=== PATIENT | female | born 1950 | race Caucasian/White ===

== ENCOUNTER 2017-08-09 08:03 | Inpatient (IN) | payer OTHER ==
[~2017-08-09] VITALS: Ht 170.2 cm; Wt 67.1 kg
[~2017-08-09 08:03] MED LIST: ASPIRIN81 M1; CALICUM 500+D1 EACH; CELEXA20 MG PO; CENTRUM ULTRA1 EAC1 PO; ESTRACE42.5 GM VG; FIBER CHOICE CHE2 GM; FIBER GUMMIES2.5 GM PO; FISH OIL 1,2001 EAC3 PO; FLONASE16 G1 BOTH NARES; MULTIPLE VITAM1 EAC4; OMEPRAZOLE20 MG; PRILOSEC OTC20 MG PO; TYLENOL ARTHRI650 M2 PO
[2017-08-09 09:35] LABS: EOSINOPHIL (%) 0.1 % (0-5); HEMATOCRIT 41.8 % (36.0-46.0); IMMATURE GRANULOCYTE (%) 0.5 % (0.0-0.7); INSTRUMENT ABS NEUTROPHIL CT 6.2 K/uL; LYMPHOCYTE COUNT 1.5 K/uL (1.0-2.8); MCH 30.9 PG (29.0-34.0); MCHC 33.7 G/DL (30.0-36.0); MCV 91.5 FL (83-99); MEAN PLAT.VOLUME 10.3 uM^3 (9.5-12.4); MONOCYTE (%) 6.5 % (3-12); MONOCYTE COUNT 0.5 K/uL (0-0.8); NEUTROPHIL (%) 75.1 % (45-76); NEUTROPHIL COUNT 6.2 K/uL (1.8-6.4); PLATELET COUNT 287 K/uL (156-360); RBC DIS.WIDTH-CV 13.2 % (11.8-14.6); RBC DIS.WIDTH-SD 44.6 % (39-53); RED BLOOD COUNT 4.57 M/uL (3.80-5.20); WHITE BLOOD COUNT 8.3 K/uL (4.1-10.2)
[2017-08-09 09:46] LABS: AMPHETAMINE NEGATIVE (500 ng/mL); BARBITURATES NEGATIVE (200 ng/mL); BENZODIAZEPINES NEGATIVE (150 ng/mL); COCAINE NEGATIVE (150 ng/mL); INTERNAL CONTROLS VALID? YES; METHADONE NEGATIVE (200 ng/mL); METHAMPHETAMINE NEGATIVE (500 ng/mL); OPIATES (MORPHINE) NEGATIVE (100 ng/mL); OXYCODONE NEGATIVE (100 ng/mL); PHENCYCLIDINE NEGATIVE (25 ng/mL); PROPOXYPHENE NEGATIVE (300 ng/mL); THC CANNABINOIDS NEGATIVE (50 ng/mL); TRICYCLIC ANTIDEPRESSANTS NEGATIVE (300 ng/mL)
[2017-08-09 09:47] LABS: CHLORIDE 108 mEq/L (99-109); POTASSIUM 4.3 mEq/L (3.7-5.4); SODIUM 144 mEq/L (136-147)
[2017-08-09 09:49] LABS: GLUCOSE 93 mg/dL (70-99)
[2017-08-09 09:50] LABS: ANION GAP 9 MEQ/L (2-14)
[2017-08-09 09:52] LABS: SERUM ETHYL ALCOHOL < 10 mg/dL
[2017-08-09 09:53] LABS: GFR ESTIMATE (CALCULATED) > 59 mL/min/
[2017-08-09 09:55] LABS: UREA NITROGEN (BUN) 15 mg/dL (9-23)
[2017-08-09 09:56] LABS: SALICYLATE < 5.0 MG/DL (15-30)
[2017-08-09] MEDS ORDERED: OMEPRAZOLE20 MG PO (13:17)
[2017-08-09 14:30] LABS: ADD MIUA? YES; BILIRUBIN NEGATIVE; BLOOD NEGATIVE; COLOR COLORLESS ((YELLOW)); GLUCOSE (STRIP) NEGATIVE; KETONES NEGATIVE; LEUKOCYTES TRACE; NITRITE NEGATIVE; PROTEIN (STRIP) NEGATIVE; SPECIFIC GRAVITY 1.004 (1.000-1.030); UROBILINOGEN 0.2 MG/DL (0.2-1.0)
[2017-08-09 14:50] LABS: BACTERIA NONE SEEN /HPF; EPITHELIAL CELLS RARE /HPF; MUCUS NONE SEEN /LPF; RED BLOOD CELLS NONE SEEN /HPF (0-5); UCUL ADDED? NO; WHITE BLOOD CELLS 0-5 /HPF (0-5)
[2017-08-09 15:46] VITALS: BP 142/80
[2017-08-10 07:45] VITALS: BP 143/81
[2017-08-10 15:23] VITALS: BP 151/96
[2017-08-11 07:52] VITALS: BP 158/96
[2017-08-11 16:13] VITALS: BP 146/92
[2017-08-12 07:38] VITALS: BP 145/91
[2017-08-12 15:38] VITALS: BP 119/77
[2017-08-13 07:44] VITALS: BP 146/79
[2017-08-13 15:12] VITALS: BP 135/86
[2017-08-14 07:36] VITALS: BP 133/76
[2017-08-14] MEDS ORDERED: LEXAPRO10 MG PO (09:27)
[2017-08-14] MEDS ORDERED: ARIPIPRAZOLE2 MG PO (09:29)
[2017-08-14] MEDS ORDERED: HYDROXYZINE PAM50 MG PO (09:29)
[2017-08-14] MEDS ORDERED: HYDROXYZINE PAM25 MG PO ×2 (09:29)
[2017-08-14] MEDS ORDERED: TRAZODONE HCL50 MG PO (09:29)
== END 2017-08-14 11:34 | disposition home or self-care (01) | DRG 885 ==
LOC: EME 08:03 → 1WEST 12:37 → EDOF 12:37 → ENRESERV 14:02 → 1WEST 14:28
PROVIDERS: Emergency Medicine
DX: F29 Unspecified psychosis not due to a substance or known physiological condition (principal); F22 Delusional disorders; F41.9 Anxiety disorder, unspecified; F32.9 Major depressive disorder, single episode, unspecified; I10 Essential (primary) hypertension; E78.5 Hyperlipidemia, unspecified; R42 Dizziness and giddiness
CPT/HCPCS: 70450; 80048; 81003; 82607; 82747 90; 84443; 85025; 90839; 97150 GO; 97166 GO; 99281; 99284; G0480; Q0177